=== PATIENT | male | born 1970 | race Caucasian/White ===

== ENCOUNTER 2016-09-08 08:16 | Inpatient (IN) | payer OTHER ==
[~2016-09-08] VITALS: Ht 185.4 cm; Wt 127.3 kg
[~2016-09-08 08:16] MED LIST: BENICAR20 MG PO
[2016-09-08 09:23] LABS: BASOPHIL COUNT 0.1 K/uL (0-0.1); EOSINOPHIL (%) 1.5 % (0-5); EOSINOPHIL COUNT 0.1 K/uL (0-0.3); HEMATOCRIT 44.8 % (38.0-50.0); IMMATURE GRANULOCYTE (%) 0.3 % (0.0-0.7); INSTRUMENT ABS NEUTROPHIL CT 4.2 K/uL; LYMPHOCYTE COUNT 1.2 K/uL (1.0-2.8); MCH 29.2 PG (29.0-34.0); MCHC 34.4 G/DL (30.0-36.0); MCV 84.8 FL (86-99); MEAN PLAT.VOLUME 10.4 uM^3 (9.0-12.4); MONOCYTE (%) 6.5 % (3-12); MONOCYTE COUNT 0.4 K/uL (0-0.8); NEUTROPHIL (%) 70.7 % (45-76); NEUTROPHIL COUNT 4.2 K/uL (1.8-6.4); PLATELET COUNT 258 K/uL (156-360); RBC DIS.WIDTH-CV 13.3 % (11.8-14.6); RBC DIS.WIDTH-SD 41.4 % (39-53); RED BLOOD COUNT 5.28 M/uL (4.00-5.50); WHITE BLOOD COUNT 5.9 K/uL (4.1-10.2)
[2016-09-08 09:35] LABS: CHLORIDE 106 mEq/L (99-109); POTASSIUM 3.8 mEq/L (3.7-5.4); SODIUM 140 mEq/L (136-147)
[2016-09-08 09:37] LABS: GLUCOSE 120 mg/dL (70-99)
[2016-09-08 09:38] LABS: ANION GAP 11 MEQ/L (2-14)
[2016-09-08 09:40] LABS: SERUM ETHYL ALCOHOL 120 mg/dL
[2016-09-08 09:41] LABS: GFR ESTIMATE (CALCULATED) > 59 mL/min/; UREA NITROGEN (BUN) 7 mg/dL (9-23)
[2016-09-08] MEDS ORDERED: OLMESARTAN-HCT1 EAC1 PO (13:15)
[2016-09-08] MEDS ORDERED: DULOXETINE HCL60 MG PO (13:15)
[2016-09-08] MEDS ORDERED: DESYREL100 MG PO ×2 (13:16→13:17)
[2016-09-08] MEDS ORDERED: ESOMEPRAZOLE MA40 MG PO (13:17)
[2016-09-08 17:00] LABS: ADD MIUA? YES; BILIRUBIN NEGATIVE; BLOOD NEGATIVE; COLOR YELLOW ((YELLOW)); GLUCOSE (STRIP) NEGATIVE; KETONES NEGATIVE; LEUKOCYTES NEGATIVE; NITRITE NEGATIVE; PROTEIN (STRIP) NEGATIVE; SPECIFIC GRAVITY 1.016 (1.000-1.030); UROBILINOGEN 0.2 MG/DL (0.2-1.0)
[2016-09-08 17:15] LABS: ADD MEDTOX COMMENT Y; AMPHETAMINE NEGATIVE (500 ng/mL); BARBITURATES NEGATIVE (200 ng/mL); BENZODIAZEPINES PRESUMPTIVE POSITIVE (150 ng/mL); COCAINE NEGATIVE (150 ng/mL); INTERNAL CONTROLS VALID? YES; METHADONE NEGATIVE (200 ng/mL); METHAMPHETAMINE NEGATIVE (500 ng/mL); OPIATES (MORPHINE) NEGATIVE (100 ng/mL); OXYCODONE PRESUMPTIVE POSITIVE (100 ng/mL); PHENCYCLIDINE NEGATIVE (25 ng/mL); PROPOXYPHENE NEGATIVE (300 ng/mL); THC CANNABINOIDS NEGATIVE (50 ng/mL); TRICYCLIC ANTIDEPRESSANTS NEGATIVE (300 ng/mL)
[2016-09-08 17:25] LABS: BACTERIA NONE SEEN /HPF; EPITHELIAL CELLS NONE SEEN /HPF; MUCUS 2+ /LPF; RED BLOOD CELLS NONE SEEN /HPF (0-5); WHITE BLOOD CELLS NONE SEEN /HPF (0-5)
[2016-09-08 17:50] LABS: BENZODIAZEPINES QUANT VALUE 0 NG/ML
[2016-09-08 17:53] LABS: BENZODIAZEPINES, URINE SCREEN Negative (200 ng/mL)
[2016-09-08 19:39] VITALS: BP 161/92
[2016-09-09 08:01] VITALS: BP 122/78
[2016-09-09 15:42] VITALS: BP 123/70
[2016-09-10 08:08] VITALS: BP 126/77
[2016-09-10 15:45] VITALS: BP 138/81
[2016-09-10 18:46] VITALS: BP 127/83
[2016-09-11 07:59] VITALS: BP 117/63
[2016-09-11] MEDS ORDERED: ARIPIPRAZOLE5 MG PO (10:47)
[2016-09-11] MEDS ORDERED: SINEQUAN25 MG PO (10:47)
== END 2016-09-11 13:00 | disposition home or self-care (01) | DRG 885 ==
LOC: EME 08:16 → 1WEST 15:34 → EDOF 15:34 → 1WEST 19:36
PROVIDERS: Emergency Medicine
DX: F33.2 Major depressive disorder, recurrent severe without psychotic features (principal); F10.10 Alcohol abuse, uncomplicated; G47.00 Insomnia, unspecified; T14.91 Suicide attempt; I10 Essential (primary) hypertension; K21.9 Gastro-esophageal reflux disease without esophagitis; Z72.89 Other problems related to lifestyle
CPT/HCPCS: 80048; 81003; 84999; 85025; 90837; 97150 GO; 97165 GO; 99281; 99285; G0480